=== PATIENT | female | born 1965 | race Caucasian/White ===

== ENCOUNTER → 2024-03-27 | Outpatient (CLI) | payer BC ==
[~2024-03-27] MED LIST: ALPR0.5T3; CETI-24; CHLO125TA; ESTR0.1C5; FAMO1TAB11; GABA-282; ISOVUE-370 76% 100ML VIAL As Ordered ONE; LEXA1TAB2; LIDO30CR18 TOP; LISI40TA4; LOSA50TA28; OLAN1TAB16; ONDA-84; PRED50TA PO; PROC10TA5; PROM25TA12; TREL1AER; TRIA1CR80; [UNRECOGNIZED DRUG - CODE] IV
== END ==
LOC: M RAD 09:35
PROVIDERS: ATTEND Specialist
DX: C44.310 Basal cell carcinoma of skin of unspecified parts of face (principal)

== ENCOUNTER → 2025-04-21 | Outpatient (CLI) | payer BC ==
[~2025-04-21] MED LIST changes: +GABA-1172; -GABA-282; -ISOVUE-370 76% 100ML VIAL As Ordered ONE; +LISI40TA10; -LISI40TA4; +LOMO2.5T PO; -PRED50TA PO; +PRED50TA57 PO; +PRED5TA PO
== END ==
LOC: M RAD 07:23
PROVIDERS: ATTEND Specialist
DX: K76.0 Fatty (change of) liver, not elsewhere classified (principal)